=== PATIENT | female | born 1950 | race Caucasian/White ===

== ENCOUNTER 2021-11-13 15:20 | Outpatient (RCR) | payer MEDICARE, SELFPAY | END 2021-11-13 19:00 | disposition home or self-care (01) | LOC: PT 15:20 | PROVIDERS: PCP Family Medicine | DX: R69 Illness, unspecified (principal) ==

== ENCOUNTER 2022-01-13 09:25 | Emergency (ER) | payer MEDICARE, SELFPAY ==
[2022-01-13 09:26] VITALS: BP 120/79; PULSE 67; RESP 16; TEMP 35.6; O2SAT 97; BMI 24.5
--- NOTE | 2022-01-13 10:22 | RAD_ITS ---
STUDY: X-RAY - LEFT KNEE REASON FOR EXAM: Female, 71 years old. Injury/fall TECHNIQUE: 4 view(s) of the knee. COMPARISON: None. FINDINGS: Normal visualized distal femur. Normal visualized proximal tibia and fibula. Normal proximal tibiofibular articulation. Normal medial femorotibial compartment. Normal lateral femorotibial compartment. There is severe degenerative arthrosis of the patellofemoral articulation. Small joint effusion. Prepatellar soft tissue swelling. Chondrocalcinosis of the medial and lateral menisci. RAD/Knee 4 or More Views IMPRESSION: Degenerative arthrosis. Small joint effusion. Chondrocalcinosis. Electronically Signed: Albert Manzanares MD at 10:49 EDT ,
--- NOTE | 2022-01-13 10:28 | EDS_ITS ---
HPI History of Present Illness Chief Complaint: Lower Extremity Injury Informant: patient Occured/Mechanism Mechanism/Context: Yes fall and Yes same level fall Comment: tripped on uneven concrete while walking yesterday Onset/Context/Timing Onset: Yesterday Context: Sudden Onset Timing: Continuous Quality of Pain: Aching Location: L knee Current Severity: Moderate Maximum Severity: Moderate Worsened by: bending, walking/WBing Relieved by: rest and remaining still Associated Symptoms Associated Symptoms: Negative for Parasthesia, Weakness or Loss of Funtion Narrative Narrative: Patient tripped and fell to her knees and hands yesterday. Scraped the right side of her face as well. She is only having pain in the left knee now. Able to walk at the time and now. Swelling of the left knee. Takes no anticoagulants. [facility] Medical History (Updated 01/13/22 @ 11:[address] Ameya Shin MD) Cataracts, bilateral Knee pain, left Macular degeneration Neck pain Home Medications ascorbic acid (vitamin C) 100 mg chewable tablet 100 mg PO QDAY 09/10/17 [History Last Taken Unknown] glucosamine 750 [id number] no1 644 mg-C 30 mg-aleksandr 1 mg tablet (Osteo Bi -Flex Triple Strength) 1 tab PO BID 09/10/17 [History Last Taken Unknown] lactobacillus combination no.9 4 billion cell capsule (Adult 50 Plus Probiotic) 4,000 mmu cells PO QDAY 09/10/17 [History Last Taken Unknown] melatonin 10 mg capsule 10 mg PO HS PRN 09/10/17 [History Last Taken Unknown] multivitamin 1 tab PO QAM 09/10/17 [History Last Taken Unknown] omeprazole magnesium 20 mg tablet,delayed release (Prilosec OTC) 20 mg PO QDAY 09/10/17 [History Last Taken Unknown] calcium carbonate 200 mg calcium (500 mg) chewable tablet (Antacid (calcium carbonate)) 200 mg PO BID 09/28/18 [History Last Taken Unknown] ginkgo biloba 40 mg tablet 40 mg PO TID 09/28/18 [History Last Taken Unknown] Allergy/AdvReac Type Severity Reaction Status Date / Time erythromycin base Allergy Mild Rash Verified 09/28/18 10:16 egg AdvReac Severe Swelling Verified 09/28/18 10:16 artifical sweetner AdvReac Severe Swelling Uncoded 09/10/17 09:51 Family History Mother Colon cancer Macular degeneration Anxiety Hypertension Dementia Father Alzheimer disease Surgical History H/O breast biopsy History of cholecystectomy (~2013) History of tonsillectomy Social History adopted: No household members: family and children housing: house number of children: 2 current occupation: retired teacher other: Dght family livingwith patient Smoking Status: Never smoker second hand exposure: No alcohol intake: current alcohol intake frequency: holidays/special occasions only substance use type: does not use seatbelt use: always do you feel safe at home: Yes additional social history: ROS ROS ED Constitutional Constitutional ED: Denies chills or fever(s) Musculoskeletal Musculoskeletal: Reports extremity pain; Denies neck pain Integumentary Reports Abrasions; Denies rash or wounds Neurologic Neurologic: Denies paresthesias or weakness EXAM Physical Exam Const Vital Signs: 01/13/22 09:26 Temperature 96.1 F L Temperature Source Temporal Pulse Rate 67 Respiratory Rate 16 Blood Pressure 120/79 Blood Pressure Mean 92 Pulse Ox 97 Oxygen Delivery Method Room Air Positive well nourished and well developed General Appearance ED: well developed and NAD Neck full ROM and supple Back/Spine normal ROM and normal to inspection Extremity Extremity Narrative: Left knee: Full extension, limited range of motion with regards to bending, maybe 30 or 40 degrees due to pain and swelling. Tender anteriorly mostly at patella with diffuse swelling around this, difficult to tell if this is an effusion or not. All ligaments stable with short endpoints on stressing and no significant discomfort with stressing. Negative June negative posterior drawer. Neuro oriented x3, no focal motor deficits and no sensory deficits noted Sensorium / Orientation: alert Psych mental status grossly normal and thought process normal Skin Skin Narrative: Minor abrasions to palms, right zygomatic arch without bony tenderness, both anterior knees. No lacerations. Rashes: no rashes MDM MDM MDM Narrative Medical decision making narrative: 4 view knee x-ray on my interpretation shows no acute bony abnormality. Radiology in agreement, they did cite a small joint effusion. Patient and and I discussed the differential here, more than likely given the mechanism it is just a traumatic effusion that will resolve with time, but were not able to rule out the possibility of meniscus injury or other internal derangement. I am not suspicious of a ligament rupture, she has no pain or laxity with stressing them. She was offered analgesics and declined states she will take Tylenol and/or ibuprofen, gave her an Dieter wrap, and discussed methods of supportive care and follow-up with orthopedics if the swelling goes away in 1-2 weeks and she still is having issues. Radiography Diagnostic Testing: Clinical Impression(s) from Imaging Studies Knee X-Ray 01/13/22 10:22 IMPRESSION: Degenerative arthrosis. Small joint effusion. Chondrocalcinosis. Electronically Signed: Albert Manzanares MD at 10:49 EDT , Discharge Plan Triage Chief Complaint: Lower Extremity Injury ED Provider: Ameya Shin Dx/Rx/DC Orders Clinical Impression: Effusion of knee joint, left, Injury of knee, left, Abrasion, multiple sites, Fall from slip, trip, or stumble Instructions: ED Bandage Elastic Wrap, ED Knee Effusion Prescriptions: No Action omeprazole magnesium [Prilosec OTC] 20 mg tablet,delayed release (DR/EC) 20 mg PO QDAY multivitamin tablet 1 tab PO QAM lactobacillus combination no.9 [Adult 50 Plus Probiotic] 4 billion cell capsule 4,000 mmu cells PO QDAY melatonin 10 mg capsule 10 mg PO HS PRN [id number] [Osteo Bi-Flex Triple Strength] 750 mg-644 mg- 30 mg-1 mg tablet 1 tab PO BID ascorbic acid (vitamin C) 100 mg chewable tablet 100 mg tablet,chewable 100 mg PO QDAY calcium carbonate [Antacid (calcium carbonate)] 200 mg calcium (500 mg) tablet,chewable 200 mg PO BID ginkgo biloba 40 mg tablet 40 mg PO TID Primary Care Provider: Mathieu Spencer Referrals: Valeriy Rivera MD [Med Staff - Active Staff] - 1-2 Weeks (If not improving) Mathieu Spencer MD [Primary Care Provider] - Disposition Disposition: Home, Self Care
[2022-01-13 11:32] VITALS: PULSE 74; RESP 17; O2SAT 97
== END 2022-01-13 11:33 | disposition home or self-care (01) ==
PROVIDERS: Emergency Provider Emergency Medicine; PCP Family Medicine; Visit Provider Emergency Medicine
DX: S89.82XA Other specified injuries of left lower leg, initial encounter (principal); M25.462 Effusion, left knee; W01.0XXA Fall on same level from slipping, tripping and stumbling without subsequent striking against object, initial encounter
CPT/HCPCS: 73564; 99282

== ENCOUNTER → 2023-11-05 | Outpatient (CLI) | payer MEDICARE, SELFPAY ==
--- NOTE | 2023-11-05 07:46 | CT_ITS ---
CT LEFT LOWER EXTREMITY WITH 3-D IMAGING CLINICAL INDICATION: PRE OP WASC, LEFT KNEE SURGICAL PLANNING TECHNIQUE: Axial CT images of the left lower extremity (including left hip, left knee, and left ankle) was performed without IV contrast material. Coronal and sagittal reformats were provided. The protocol utilizes one or more of the following dose reduction techniques: automated exposure control, adjustment of mA and/or kV according to patient size, and/or use of iterative reconstruction technique. RADIATION DOSAGE (If Supplied By Facility): CTDIvol = ( 18.76 ) mGy, DLP = ( 1109.20 ) mGycm COMPARISON: Left knee radiographs dated 01/13/2022. FINDINGS: Bones: There is degenerative arthrosis of the left hip joint with marginal osteophyte formation. There is pubic symphysis arthrosis. There is moderate degenerative arthrosis of the medial and lateral femorotibial compartments of the left knee with moderate joint space narrowing, marginal osteophyte formation, and subchondral sclerosis. There is severe degenerative arthrosis of the patellofemoral compartment with tuyp-wz-yqsc and marginal osteophyte formation. There is a 1.1 cm ossified loose body at the inferior margin of the patellofemoral joint. There is an additional 1.5 cm ossified loose body in the lateral patellofemoral joint recess. There are small plantar and posterior calcaneal spurs. Osseous structures are intact without evidence of fracture or dislocation. No lytic or blastic osseous masses. Soft Tissues: There is a moderate left knee joint effusion. The deep soft tissue structures are unremarkable. The superficial soft tissues are unremarkable without evidence of edema, hematoma, or foreign body. CT/Extremity Lower without Contra IMPRESSION: Tricompartment degenerative arthrosis of the left knee, most severe in the patellofemoral compartment. At least 2 ossified loose bodies in the patellofemoral joint recess. Moderate left knee joint effusion. Electronically Signed: Martín Castano MD at 9:06 EDT ,
--- NOTE | 2023-11-05 07:48 | EKG12_ITS ---
Test Reason : PRE OP Blood Pressure : / mmHG Vent. Rate : 068 BPM Atrial Rate : 068 BPM P-R Int : 140 ms QRS Dur : 080 ms QT Int : 400 ms P-R-T Axes : 082 070 073 degrees QTc Int : 425 ms Normal sinus rhythm Normal ECG Confirmed by BERNARDA TYLER, PALOAM ([id number]), banana grader SHANTELL RAMIREZ ([id number]) on 11/06/2023 6:52:37 AM Referred By: Valeriy Rivera Confirmed By:SELMA MENCHACA MD
[2023-11-05 09:40] LABS: Absolute Lymphocyte Count 1.28 X10^3/uL (0.83-4.51); Absolute Neutrophil Count 2.8 X10^3/uL (2.0-7.7); Basophil# 0.03 X10^3/uL; Basophil% 0.6 % (0-1); Eosinophil# 0.27 X10^3/uL; Eosinophils% 5.4 % (0-5); Hemoglobin 11.6 g/dL (12.0-15.0); Lymphocyte # 1.28 X10^3/ul (0.83-4.51); Lymphocyte % 25.6 % (19-41); Mean Corp Hgb Conc 32.2 g/dL (32-36); Mean Corpuscular Hgb 30.4 pg (27.0-32.0); Mean Corpuscular Volume 94.2 fL (81-99); Mean Platelet Vol. 10.1 fl (6.2-12.0); Monocyte# 0.61 X10^3/uL; Monocyte% 12.2 % (0-10); NRBC Flagged by Analyzer 0 % (0-5); Neutrophil # 2.79 X10^3/uL (2.7-7.7); Neutrophil % 55.8 % (47-70); Platelet Count 200 K/mm3 (150-450); RBC Distribution Width CV 13.8 % (11.6-14.6); RBC Distribution Width SD 47.9 fl (35.1-43.9); Red Blood Count 3.82 M/mm3 (4.2-5.4)
[2023-11-05 11:48] LABS: Albumin, Serum 3.4 g/dL (3.2-5.0); Anion Gap 7 (5-15); BUN 39 mg/dL (7-18); BUN/Creat Ratio 35.8 RATIO (10-20); Calcium,Total 9.9 mg/dL (8.5-10.1); Chloride 107 mmol/L (98-107); Creatinine, Serum 1.09 mg/dL (0.55-1.02); EST Glomerular Filtration Rate 52 mL/min (>60); Est Glom Filt Rate - Afr Amer 63 mL/min (>60); Glucose 78 mg/dL (74-106); Potassium 4.6 mmol/L (3.5-5.1); Sodium Level 140 mmol/L (136-145)
== END | disposition home or self-care (01) ==
PROVIDERS: PCP Family Medicine; Referring Provider Specialist; Visit Provider Specialist
DX: Z01.818 Encounter for other preprocedural examination (principal); Z01.810 Encounter for preprocedural cardiovascular examination; M25.562 Pain in left knee; M17.12 Unilateral primary osteoarthritis, left knee; M21.062 Valgus deformity, not elsewhere classified, left knee
CPT/HCPCS: 36415; 73700; 80048; 82040; 85025; 93005

== ENCOUNTER → 2023-11-20 | Outpatient (CLI) | payer MEDICARE, SELFPAY ==
[2023-11-20 13:24] LABS: Absolute Lymphocyte Count 1.13 X10^3/uL (0.83-4.51); Absolute Neutrophil Count 3.7 X10^3/uL (2.0-7.7); Basophil# 0.03 X10^3/uL; Basophil% 0.5 % (0-1); Eosinophil# 0.25 X10^3/uL; Eosinophils% 4.5 % (0-5); Hemoglobin 11.7 g/dL (12.0-15.0); Lymphocyte # 1.13 X10^3/ul (0.83-4.51); Lymphocyte % 20.2 % (19-41); Mean Corp Hgb Conc 31.6 g/dL (32-36); Mean Corpuscular Hgb 29.9 pg (27.0-32.0); Mean Corpuscular Volume 94.6 fL (81-99); Mean Platelet Vol. 9.8 fl (6.2-12.0); Monocyte# 0.52 X10^3/uL; Monocyte% 9.3 % (0-10); NRBC Flagged by Analyzer 0 % (0-5); Neutrophil # 3.65 X10^3/uL (2.7-7.7); Neutrophil % 65.1 % (47-70); Platelet Count 215 K/mm3 (150-450); RBC Distribution Width CV 13.9 % (11.6-14.6); RBC Distribution Width SD 48.5 fl (35.1-43.9); Red Blood Count 3.91 M/mm3 (4.2-5.4); White Blood Count 5.6 K/mm3 (4.4-11.0)
[2023-11-20 13:50] LABS: Albumin, Serum 3.2 g/dL (3.2-5.0); Anion Gap 3 (5-15); BUN 39 mg/dL (7-18); BUN/Creat Ratio 33.3 RATIO (10-20); Calcium,Total 9.8 mg/dL (8.5-10.1); Chloride 108 mmol/L (98-107); Creatinine, Serum 1.17 mg/dL (0.55-1.02); EST Glomerular Filtration Rate 48 mL/min (>60); Est Glom Filt Rate - Afr Amer 58 mL/min (>60); Glucose 82 mg/dL (74-106); Potassium 4.2 mmol/L (3.5-5.1); Sodium Level 140 mmol/L (136-145)
== END | disposition home or self-care (01) ==
LOC: LAB 12:33
PROVIDERS: PCP Family Medicine; Referring Provider Specialist; Visit Provider Specialist
DX: M25.562 Pain in left knee (principal); R03.0 Elevated blood-pressure reading, without diagnosis of hypertension
CPT/HCPCS: 36415; 80048; 82040; 85025